=== PATIENT | female | born 1990 | race Caucasian/White ===

== ENCOUNTER 2021-09-22 09:29 | Emergency (ER) | payer SELFPAY ==
[~2021-09-22] VITALS: Ht 154.9 cm; Wt 114.8 kg
[2021-09-22 09:37] VITALS: BP 156/116
[2021-09-22] MEDS ORDERED: IBUP-2213 PO (10:13)
[2021-09-22] MEDS ORDERED: AMOX-1000 PO (10:13)
--- NOTE | 2021-09-22 10:26 | NUR ---
PT SEEN AND D/C BY DR MOJICA, NO NURSING INTERVENTIONS PROVIDED
--- NOTE | 2021-09-22 10:27 | NUR ---
Patient discharged with v/s stable. Written and verbal after care instructions ABOUT OTITIS MEDIA given and explained. Patient alert, oriented and verbalized understanding of instructions. Ambulatory with steady gait. All questions addressed prior to discharge. ID band removed. Patient advised to follow up with PMD. Rx of AUGMENTIN 875-125 TAB AND IBUPROFEN given. Patient educated on indication of medication including possible reaction and side effects. Opportunity to ask questions provided and answered.
== END 2021-09-22 10:27 | disposition home or self-care (01) ==
LOC: MED 09:29
DX: H66.93 Otitis media, unspecified, bilateral (principal); Z88.1 Allergy status to other antibiotic agents
CPT/HCPCS: 99283